=== PATIENT | male | born 1965 | race African-American/Black ===

== ENCOUNTER 2018-05-08 11:03 | Inpatient (IN) | payer OTHER ==
[2018-05-08 11:19] VITALS: BMI 25.6
--- NOTE | 2018-05-08 12:21 | HP ---
CIWA Score Nausea/Vomitin-Mild Nausea/No Vomiting Muscle Tremors: 4-Moderate,w/Arms Extend Anxiety: 4-Mod. Anxious/Guarded Agitation: 1-Slight > Activity Paroxysmal Sweats: 1-Minimal Palms Moist Orientation: 1-Uncertain about Date Tacttile Disturbances: 0-None Auditory Disturbances: 1-Very Mild Visual Disturbances: 0-None Headache: 1-Very Mild CIWA-Ar Total Score: 14 - Admission Criteria OASAS Guidelines: Admission for Medically Managed Detox: Requires at least one of the followin. CIWA greater than 12 2. Seizures within the past 24 hours 3. Delirium tremens within the past 24 hours 4. Hallucinations within the past 24 hours 5. Acute intervention needed for co occurring medical disorder 6. Acute intervention needed for co occurring psychiatric disorder 7. Severe withdrawal that cannot be handled at a lower level of care (continued vomiting, continued diarrhea, abnormal vital signs) requiring intravenous medication and/or fluids 8. Patient presents the following: CIWA greater than 12 Admission Criteria Met: Admission criteria met Admission ROS S - HPI Chief Complaint: I need help to stop drinking, I've been looking around for awhile. I want to be an asset to my community and I can't do that if I'm under the influence all the time like I am. I even steal to drink because I can't go very long without drinking - I have to have it or I get sick, I shake and can't stop Allergies/Adverse Reactions: Allergies Allergy/AdvReac Type Severity Reaction Status Date / Time nut - unspecified Allergy Severe Swelling Verified 05/08/18 11:38 shellfish derived Allergy Severe Swelling Verified 05/08/18 11:38 No Known Drug Allergies Allergy Verified 05/08/18 11:38 History of Present Illness: 53 yo gentleman here for detox from alcohol - this is first time here but second time in detox. No seizures but does have black outs. States he has woken up many times in an emergency room not knowing how he go there. Currently unemployed as a lunch cook. Exam Limitations: Clinical Condition - Ebola screening Have you traveled outside of the country in the last 21 days: No (N) Have you had contact with anyone from an Ebola affected area: No Have you been sick,other than usual withdrawal symptoms: No Do you have a fever: No - Review of Systems Constitutional: Malaise, Changes in sleep EENT: reports: Other (conjunctiva red (saw [facility] and on eye drops)) Respiratory: reports: No Symptoms reported Cardiac: reports: No Symptoms Reported GI: reports: Poor Appetite, Poor Fluid Intake, Abdominal cramping : reports: Frequency Musculoskeletal: reports: Other (left forearm with numbness - chronic from an injury) Integumentary: reports: Dryness Neuro: reports: Headache, Tremors Endocrine: reports: No Symptoms Reported Hematology: reports: No Symptoms Reported Psychiatric: reports: Judgement Intact, Mood/Affect Appropiate, Anxious Other Systems: Reviewed and Negative Patient History - Patient Medical History Hx Asthma: Yes Hx Chronic Obstructive Pulmonary Disease (COPD): No Hx Cancer: No Hx Cardiac Disorders: No Hx Congestive Heart Failure: No Hx Hypertension: Yes (Non compliant) Hx Pacemaker: No HX Cerebrovascular Accident: No Hx Seizures: No Hx Diabetes: No Hx Gastrointestinal Disorders: No Hx Liver Disease: No Hx Genitourinary Disorders: No Hx Sexually Transmitted Disorders: No Hx Renal Disease (ESRD): No Hx Thyroid Disease: No Hx Human Immunodeficiency Virus (HIV): No Hx Hepatitis C: No Hx Depression: No Hx Suicide Attempt: No Hx Bipolar Disorder: No Hx Schizophrenia: No - Patient Surgical History Past Surgical History: Yes Hx Neurologic Surgery: No Hx Cataract Extraction: No Hx Cardiac Surgery: No Hx Lung Surgery: No Hx Breast Surgery: No Hx Breast Biopsy: No Hx Abdominal Surgery: No Hx Appendectomy: No Hx Cholecystectomy: No Hx Genitourinary Surgery: No Hx Orthopedic Surgery: Yes (left ankle ORIF of 1997) Anesthesia Reaction: No - PPD History Previous Implant?: Yes Documented Results: Negative w/proof Implanted On Prior [facility] Admission?: No PPD to be Administered?: Yes - Reproductive History Patient is a Female of Child Bearing Age (11 -55 yrs old): No (male) - Smoking Cessation Smoking history: Never smoked Have you smoked in the past 12 months: No Cigars Per Day: 0 Hx Chewing Tobacco Use: No Initiated information on smoking cessation: No - Substance & Tx. History Hx Alcohol Use: Yes Hx Substance Use: No Substance Use Type: Alcohol Hx Substance Use Treatment: Yes (detox, ) - Substances Abused Alcohol Route: Oral Frequency: Daily Amount used: 3 pints of vodka, 48 16oz cans of beer Age of first use: 14 Date of Last Use: 05/08/18 Family Disease History - Family Disease History Family Disease History: Other: Father (no contact - never met him, raised in group homes), Mother (no contact - never met her, raised in group homes) Admission Physical Exam [facility] - Vital Signs Vital Signs: Vital Signs - 24 hr 05/08/18 11:18 Temperature 97.4 F L Pulse Rate 88 Respiratory 20 Rate Blood Pressure 122/77 - Physical General Appearance: Yes: Nourished, Appropriately Dressed, Mild Distress, Tremorous, Anxious HEENTM: Yes: EOMI, Hearing grossly Normal, Normocephalic, Normal Voice, Pharynx Normal, Other (bilateral conjuctiva with erythema) Respiratory: Yes: Normal Breath Sounds, No Respiratory Distress Neck: Yes: No masses,lesions,Nodules, Supple Breast: Yes: Breast Exam Deferred Cardiology: Yes: Regular Rhythm, Regular Rate Abdominal: Yes: Soft Genitourinary: Yes: Frequency Back: Yes: Normal Inspection Musculoskeletal: Yes: full range of Motion, Gait Steady, Other (left forearm gets numb from an injury) Extremities: Yes: Normal Inspection, Normal Range of Motion, Non-Tender Neurological: Yes: Alert, Normal Mood/Affect, Normal Response Integumentary: Yes: Normal Color, Dry, Warm, Other (hands with ashy dryness) Lymphatic: Yes: Within Normal Limits - Diagnostic (1) Alcohol dependence with uncomplicated withdrawal Current Visit: Yes Status: Chronic (2) HTN (hypertension) Current Visit: Yes Status: Suspected Qualifiers: Hypertension type: essential hypertension Qualified Code(s): I10 - Essential (primary) hypertension (3) Acute bacterial conjunctivitis of both eyes Current Visit: Yes Status: Acute Comment: saw [facility] two days ago and put on eye drops Cleared for Admission [facility] - Detox or Rehab [facility] Level of Care: Medically Managed Detox Regimen/Protocol: Librium [facility] Breath Alcohol Content Breath Alcohol Content: 0 Urine Drug Screen - Results Drug Screen Negative: Yes
[2018-05-08] MEDS ORDERED: MENTHOL/PHENOL 1 EACH UD MM PRN (12:39)
[2018-05-08] MEDS ORDERED: MAGNESIUM HYDROX 2400MG/30ML ORAL SUSPENSION 30 ML CUP PO PRN (12:39)
[2018-05-08] MEDS ORDERED: guaiFENesin/D-METHORPHAN HB 10 ML UNIT-DOSE CUPS PO PRN (12:39)
[2018-05-08] MEDS ORDERED: IBUPROFEN 400 MG TABLET (FP) PO PRN (12:39)
[2018-05-08] MEDS ORDERED: LOPERAMIDE HCL 2 MG CAPSULE PO PRN (12:39)
[2018-05-08] MEDS ORDERED: MAG HYDROX/AL HYDROX/SIMETH 30 ML UNIT-DOSE CUP PO PRN (12:39)
[2018-05-08] MEDS ORDERED: P-EPHED 60MG/TRIPROLIDI 2.5MG TABLET PO PRN (12:39)
[2018-05-08] MEDS ORDERED: MAGNESIUM CITRATE 300 ML BOTTLE PO PRN (12:39)
[2018-05-08] MEDS ORDERED: ACETAMINOPHEN 325 MG TABLET (FP) PO PRN (12:39)
[2018-05-08] MEDS ORDERED: COLLOIDAL OATMEAL 1 BAR EACH TP PRN (12:41)
[2018-05-08] MEDS: chlordiazePOXIDE HCL 25 MG CAPSULE PO PRN (13:42)
[2018-05-08] MEDS: OFLOXACIN 0.3% OPHTHALMIC SOLUTION 5 ML BOTTLE OP SCH ×3 (15:26→22:35)
[2018-05-08] MEDS: chlordiazePOXIDE HCL 25 MG CAPSULE PO SCH ×2 (17:31→22:35)
[2018-05-08] MEDS ORDERED: MELATONIN 5 MG TABLETS PO PRN (22:00)
[2018-05-08] MEDS: THIAMINE HCL 100 MG TABLET (FP) PO SCH (22:34)
[2018-05-09] MEDS: chlordiazePOXIDE HCL 25 MG CAPSULE PO SCH ×4 (05:50→22:26)
[2018-05-09] MEDS: chlordiazePOXIDE HCL 25 MG CAPSULE PO PRN (05:52)
[2018-05-09 10:46] LABS: HEMATOCRIT 43.4 % (35.4-49); HEMOGLOBIN 14.1 GM/dL (11.7-16.9); MCH 30.5 pg (25.7-33.7); MCHC 32.4 g/dl (32.0-35.9); MEAN PLT VOLUME 9.2 fl (7.5-11.1); PLATELET COUNT 354 K/MM3 (134-434); RBC 4.62 M/mm3 (4.00-5.60); RDW 13.7 % (11.9-15.9); WHITE BLOOD COUNT 5.2 K/mm3 (4.0-10.0)
[2018-05-09] MEDS: PRENATAL VITAMINS W/ FOLIC ACID TABLET (FP) PO SCH (11:03)
[2018-05-09 11:05] LABS: ALBUMIN 3.6 g/dl (3.4-5.0); ALK PHOS 78 U/L (45-117); ANION GAP 7 MMOL/L (8-16); BILIRUBIN,TOTAL 0.7 mg/dL (0.2-1); BLOOD UREA NITROGEN 10 mg/dL (7-18); CALCIUM 8.8 mg/dL (8.5-10.1); CHLORIDE 104 mmol/L (98-107); CO2 25 mmol/L (21-32); CREATININE 0.8 mg/dL (0.55-1.3); GLUCOSE,RANDOM 89 mg/dL (74-106); POTASSIUM 4.7 mmol/L (3.5-5.1); SGOT/AST 26 U/L (15-37); SGPT/ALT 53 U/L (13-61); SODIUM 136 mmol/L (136-145); TOT PROT 7.4 g/dl (6.4-8.2)
--- NOTE | 2018-05-09 11:22 | PN ---
S CIWA - CIWA Score Nausea/Vomitin-Mild Nausea/No Vomiting Muscle Tremors: 4-Moderate,w/Arms Extend Anxiety: 3 Agitation: 2 Paroxysmal Sweats: 1-Minimal Palms Moist Orientation: 0-Oriented Tacttile Disturbances: 0-None Auditory Disturbances: 0-None Visual Disturbances: 0-None Headache: 1-Very Mild CIWA-Ar Total Score: 12 [facility] Progress Note (SOAP) Subjective: tremor sweat restlessness trouble sleep at night low energy able to eat 90% breakfast today Objective: 05/09/18 11:21 Vital Signs Temperature 98.2 F 05/09/18 10:55 Pulse Rate 95 H 05/09/18 10:55 Respiratory Rate 18 05/09/18 10:55 Blood Pressure 126/71 05/09/18 10:55 O2 Sat by Pulse Oximetry (%) Laboratory Last Values WBC 5.2 K/mm3 (4.0-10.0) 05/09/18 07:30 RBC 4.62 M/mm3 (4.00-5.60) 05/09/18 07:30 Hgb 14.1 GM/dL (11.7-16.9) 05/09/18 07:30 Hct 43.4 % (35.4-49) 05/09/18 07:30 MCV 94.0 fl (80-96) 05/09/18 07:30 MCH 30.5 pg (25.7-33.7) 05/09/18 07:30 MCHC 32.4 g/dl (32.0-35.9) 05/09/18 07:30 RDW 13.7 % (11.9-15.9) 05/09/18 07:30 Plt Count 354 K/MM3 (134-434) 05/09/18 07:30 MPV 9.2 fl (7.5-11.1) 05/09/18 07:30 Sodium 136 mmol/L (136-145) 05/09/18 07:30 Potassium 4.7 mmol/L (3.5-5.1) 05/09/18 07:30 Chloride 104 mmol/L (98-107) 05/09/18 07:30 Carbon Dioxide 25 mmol/L (21-32) 05/09/18 07:30 Anion Gap 7 MMOL/L (8-16) L 05/09/18 07:30 BUN 10 mg/dL (7-18) 05/09/18 07:30 Creatinine 0.8 mg/dL (0.55-1.3) 05/09/18 07:30 Creat Clearance w eGFR > 60 (>60) 05/09/18 07:30 Random Glucose 89 mg/dL (74-106) 05/09/18 07:30 Calcium 8.8 mg/dL (8.5-10.1) 05/09/18 07:30 Total Bilirubin 0.7 mg/dL (0.2-1) 05/09/18 07:30 AST 26 U/L (15-37) 05/09/18 07:30 ALT 53 U/L (13-61) 05/09/18 07:30 Alkaline Phosphatase 78 U/L (45-117) 05/09/18 07:30 Total Protein 7.4 g/dl (6.4-8.2) 05/09/18 07:30 Albumin 3.6 g/dl (3.4-5.0) 05/09/18 07:30 lab noted Assessment: 05/09/18 11:21 withdrawal sx Plan: continue detox
[2018-05-09] MEDS: OFLOXACIN 0.3% OPHTHALMIC SOLUTION 5 ML BOTTLE OP SCH ×4 (12:20→22:24)
[2018-05-09] MEDS: THIAMINE HCL 100 MG TABLET (FP) PO SCH (22:25)
[2018-05-10] MEDS: chlordiazePOXIDE HCL 25 MG CAPSULE PO SCH ×2 (05:52→10:46)
--- NOTE | 2018-05-10 09:59 | EKG ---
Test Reason : Blood Pressure : / mmHG Vent. Rate : 076 BPM Atrial Rate : 076 BPM P-R Int : 126 ms QRS Dur : 086 ms QT Int : 358 ms P-R-T Axes : 053 025 -08 degrees QTc Int : 402 ms NORMAL SINUS RHYTHM NONSPECIFIC T WAVE ABNORMALITY ABNORMAL ECG NO PREVIOUS ECGS AVAILABLE Confirmed by JESS MG, LISA ([id number]) on 05/10/2018 9:58:52 AM Referred By: Confirmed By:LISA MERCADO MD
[2018-05-10] MEDS: PRENATAL VITAMINS W/ FOLIC ACID TABLET (FP) PO SCH (10:44)
[2018-05-10] MEDS: OFLOXACIN 0.3% OPHTHALMIC SOLUTION 5 ML BOTTLE OP SCH ×4 (10:45→22:28)
--- NOTE | 2018-05-10 11:57 | PN ---
[facility] CIWA - CIWA Score Nausea/Vomitin-No Nausea/No Vomiting Muscle Tremors: 3 Anxiety: 3 Agitation: 3 Paroxysmal Sweats: 2 Orientation: 0-Oriented Tacttile Disturbances: 0-None Auditory Disturbances: 0-None Visual Disturbances: 0-None Headache: 0-None Present CIWA-Ar Total Score: 11 [facility] Progress Note (SOAP) Subjective: interrupted sleep agitation Objective: 05/10/18 11:56 Vital Signs Temperature 97.2 F L 05/10/18 09:06 Pulse Rate 106 H 05/10/18 09:06 Respiratory Rate 18 05/10/18 09:06 Blood Pressure 141/91 05/10/18 09:06 O2 Sat by Pulse Oximetry (%) Laboratory Tests 05/09/18 05/09/18 05/09/18 07:30 07:30 07:30 WBC 5.2 RBC 4.62 Hgb 14.1 Hct 43.4 MCV 94.0 MCH 30.5 MCHC 32.4 RDW 13.7 Plt Count 354 MPV 9.2 Sodium 136 Potassium 4.7 Chloride 104 Carbon Dioxide 25 Anion Gap 7 L BUN 10 Creatinine 0.8 Creat Clearance w eGFR > 60 Random Glucose 89 Calcium 8.8 Total Bilirubin 0.7 AST 26 ALT 53 Alkaline Phosphatase 78 Total Protein 7.4 Albumin 3.6 RPR Titer Nonreactive aaox3 ambulating no acute distress Assessment: 05/10/18 11:56 mild withdrawals Plan: continue detox increase fluids
[2018-05-10] MEDS: chlordiazePOXIDE 5 MG CAPSULE PO SCH ×2 (17:25→22:29)
[2018-05-10] MEDS: THIAMINE HCL 100 MG TABLET (FP) PO SCH (22:29)
[2018-05-11 06:15] VITALS: PULSE 72
[2018-05-11] MEDS: chlordiazePOXIDE 5 MG CAPSULE PO SCH ×2 (07:34→10:02)
--- NOTE | 2018-05-11 09:01 | DS ---
[facility] Detox Discharge Summary Admission Date: 05/08/18 Discharge Date: 05/11/18 - History Present History: Alcohol Dependence - Physical Exam Results Vital Signs: Vital Signs Temperature 98.2 F 05/11/18 06:14 Pulse Rate 72 05/11/18 06:14 Respiratory Rate 18 05/11/18 06:14 Blood Pressure 125/62 05/11/18 06:14 O2 Sat by Pulse Oximetry (%) - Treatment Hospital Course: Detox Protocol Followed, Detoxed Safely, Responded well, Discharged Condition Good, Rehab Referral Accepted - Medication Discharge Medications: Ambulatory Orders Ibuprofen [Motrin -] 600 mg PO TID PRN 05/08/18 Ofloxacin 0.3% Ophth Soln [Ocuflox 0.3% Eye Drops -] 2 drop OP Q4H 05/08/18 - Diagnosis (1) Acute bacterial conjunctivitis of both eyes Current Visit: Yes Status: Acute (2) Alcohol dependence with uncomplicated withdrawal Current Visit: Yes Status: Chronic (3) HTN (hypertension) Current Visit: Yes Status: Suspected Qualifiers: Hypertension type: essential hypertension Qualified Code(s): I10 - Essential (primary) hypertension - AMA Did Patient Leave Against Medical Advice: No (referred to [facility])
[2018-05-11 09:29] VITALS: BP 118/79; TEMP 97.7
[2018-05-11] MEDS: PRENATAL VITAMINS W/ FOLIC ACID TABLET (FP) PO SCH (09:47)
[2018-05-11] MEDS: OFLOXACIN 0.3% OPHTHALMIC SOLUTION 5 ML BOTTLE OP SCH (09:48)
[2018-05-11] MEDS ORDERED: chlordiazePOXIDE HCL 10 MG CAPSULE PO SCH (17:00)
== END 2018-05-11 12:45 | disposition home or self-care (01) | DRG 775 ==
LOC: YASAS 11:03 → Y6N 12:43
PROC: HZ2ZZZZ Detoxification Services for Substance Abuse Treatment (ICD-10-PCS; principal; 2018-05-08)
DX: F10.230 Alcohol dependence with withdrawal, uncomplicated (principal); I10 Essential (primary) hypertension; H10.33 Unspecified acute conjunctivitis, bilateral; J45.909 Unspecified asthma, uncomplicated; Z91.14 Patient's other noncompliance with medication regimen; Z91.010 Allergy to peanuts; Z91.013 Allergy to seafood; Z59.0 Homelessness
CPT/HCPCS: 36415; 80053; 85027; 86593; 93005; 93010